=== PATIENT | male | born 1995 | race Caucasian/White ===

== ENCOUNTER 2017-05-06 02:21 | Emergency (ER) | payer OTHER ==
[~2017-05-06] VITALS: Ht 172.7 cm; Wt 85.0 kg
[2017-05-06] MEDS ORDERED: HYDROCODONE/ACETAMINOPHEN 5-325 MG TABLET PO ONE (04:30)
[2017-05-06] MEDS ORDERED: IBUPROFEN 800 MG TABLET PO ONE (04:30)
[2017-05-06 05:21] VITALS: BP 128/80
== END 2017-05-06 06:00 | disposition home or self-care (01) ==
LOC: EMS 02:23
DX: S63.501A Unspecified sprain of right wrist, initial encounter (principal); S56.911A Strain of unspecified muscles, fascia and tendons at forearm level, right arm, initial encounter; F17.210 Nicotine dependence, cigarettes, uncomplicated; W19.XXXA Unspecified fall, initial encounter; Y93.89 Activity, other specified; Y92.89 Other specified places as the place of occurrence of the external cause; Y99.8 Other external cause status
CPT/HCPCS: 99284; 99406